=== PATIENT | male | born 1970 | race Caucasian/White ===

== ENCOUNTER 2022-05-03 12:52 | Emergency (ER) | payer OTHER ==
[~2022-05-03] VITALS: Ht 182.9 cm; Wt 102.0 kg
[2022-05-03 13:53] VITALS: BP 126/88
[2022-05-03] MEDS ORDERED: IBUP800T27 PO (18:50)
[2022-05-04] MEDS ORDERED: HYDR-4798 PO (07:38)
== END 2022-05-03 13:50 | disposition home or self-care (01) ==
LOC: ER 12:52
DX: S52.125A Nondisplaced fracture of head of left radius, initial encounter for closed fracture (principal); Z88.0 Allergy status to penicillin; W18.00XA Striking against unspecified object with subsequent fall, initial encounter; Y93.01 Activity, walking, marching and hiking; Y92.89 Other specified places as the place of occurrence of the external cause; Y99.8 Other external cause status
CPT/HCPCS: 29105; 73080